=== PATIENT | male | born 1955 | race African-American/Black ===

== ENCOUNTER 2017-04-19 16:56 | Inpatient (IN) | payer MEDICAID ==
[~2017-04-19] VITALS: Ht 170.1 cm; Wt 80.9 kg
--- NOTE | ~2017-04-19 | PR ---
[place], [place] PROGRESS NOTE NAME: ALEM DUNCAN UNIT #: [id number] ROOM: 314 DOCTOR: SUMI CROCKETT BIRTHDATE: [birth year] DOS: 04/23/2017 CHIEF COMPLAINT: "Yeah, I am good." SUMMARY OF THE VISIT: The patient was seen in the dining room where he had just finished his breakfast. Staff reported that he took some of his medications last night, has been doing much better with the Risperdal M-Tab. He has had a decrease in auditory hallucinations. He himself denies any hallucinations. He does continue to have some delusional thoughts, but they are not to the point where they are affecting him or others. He says that he slept well last night. Staff reports the same. MENTAL STATUS EXAMINATION: GENERAL: He is alert, oriented to person, place, not necessarily to time. His short term memory does have some gaps. PLAN: He has been given a loading dose of Invega Sustenna. We will continue to monitor him following that. His Risperdal has been adjusted and he has shown improvement in his behaviors. We will continue to monitor him for any side effects. We will engage him in individual and haile milieu and discharge him to the least restrictive environment when he is psychiatrically stable. Sumi Crockett NP CM:PNTRANS [phone] SUMI CROCKETT 04/23/17 2337 interface
--- NOTE | ~2017-04-19 | PR ---
[place], [place] PROGRESS NOTE NAME: ALEM DUNCAN UNIT #: [id number] ROOM: 314 DOCTOR: JUSTUS MUNIZ MD BIRTHDATE: [birth year] DOS: My in sentence was and the patient will be discharged back to [facility]. Please strike that and have it read and the patient shall be discharged back to [facility]. JUSTUS MUNIZ MD CM:PNTRANS 2 [phone] JUSTUS MUNIZ MD 04/21/17 1959 interface
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
--- NOTE | ~2017-04-19 | PROC NOTE ---
[place], [place] PROCEDURE NOTE NAME: ALEM DUNCAN UNIT #: [id number] ROOM: 314 DOCTOR: YOGI HANDLEY BIRTHDATE: [birth year] DOS: 04/26/2017 MODIFIED BARIUM SWALLOW LOCATION: [address] [place] [address], room 314, bed 2. DOCTOR: Dr. Causey. RADIOLOGIST: Dr. Osei. BACKGROUND INFORMATION: The patient is a 61-year-old male who was seen for modified barium swallow. This test was ordered to rule out aspiration. The patient has been noted to be coughing with p.o. intake. This coughing appears to be inconsistent and worse at times and then at other times. This patient was admitted to the [facility] with increased psychosis and delusions at the snf. The patient has a long history of schizoaffective disorder. Medical history also includes convulsion disorder, diabetes and dysphagia. He currently receives a regular diet and thin liquids. For today's assessment, he was alert and able to follow commands. The patient was cooperative and appeared very subdued at this time. Respiratory status was within normal limits. Oral peripheral examination revealed presence of upper and lower dentures. Strength, speed and range of motion for lingual, labial and buccal skills were within normal limits. Some mildly reduced tone was displayed in facial muscles. METHODS AND MATERIALS USED FOR THE EXAM: The patient was positioned in the lateral plane and the examination was viewed under fluoroscopy. The patient was presented with a variety of consistencies to assess swallowing skills including applesauce mixed with barium presented in half teaspoon amounts. Barium coated cookie presented in bite size pieces and nectar and thin liquid barium taken by cup. Both had neutral position and in chin tuck position. ORAL PHASE: Unremarkable. PHARYNGEAL PHASE: The pharyngeal swallow occurred within a timely manner. During the swallow, laryngeal elevation and epiglottic function were reduced with thick liquids with penetration and aspiration displayed with nectar liquid and penetration during the swallow with honey-thick liquid. One incidence of aspiration was also noted with soft solid consistency due to the mixed consistency of the solid with thin barium. Penetration and aspiration were eliminated with nectar and honey-thick liquids with use of chin tuck maneuver and during the study, a mild amount of pulling was displayed in the vallecula, which cleared with subsequent swallow. ESOPHAGEAL PHASE: This phase of the swallow was not formally assessed during this examination. IMPRESSIONS AND RECOMMENDATIONS: Based upon assessment results, this 61-year-old male presents with a mild to moderate pharyngeal stage dysphagia. He exhibited a mild amount of pooling in the vallecula with solids and liquids, [place], [place] PROCEDURE NOTE NAME: ALEM DUNCAN UNIT #: [id number] ROOM: [facility] DOCTOR: YOGI HANDLEY BIRTHDATE: [birth year] which cleared with subsequent swallow. Penetration and aspiration during the swallow was displayed with nectar and honey-thick liquids due to reduced laryngeal elevation and epiglottic function. This was eliminated with use of a chin tuck maneuver. It is recommended that the patient receive a regular diet with nectar thick liquids. Recommend a chin tuck position with all liquids. Followup therapy is recommended for this patient, focusing on pharyngeal strengthening exercises, education and use of safe swallow strategies and maneuvers to improve safety. Results and recommendations were shared with the patient. He appeared verbalized understanding. Results and recommendations were also shared with his nurse who verbalized understanding. Thank you very much for this referral. Should you have any questions regarding this patient, please contact the speech pathologist at [phone]. YOGI HANDLEY CM:PROCNOTE:PROCEDURE NOTE [id number] YOGI HANDLEY
--- NOTE | ~2017-04-19 | PR ---
[place], [place] PROGRESS NOTE NAME: ALEM DUNCAN UNIT #: [id number] ROOM: 314 DOCTOR: SUMI CROCKETT BIRTHDATE: [birth year] DOS: 04/22/2017 INTERVAL NOTE. CHIEF COMPLAINT: "I'm alright." SUMMARY OF THE VISIT: He was seated at the breakfast table, where he had eaten most of his breakfast already. He is alert. His speech is kind of garbled, but he is able to make himself understood. Does not make eye contact when he is speaking though. He reports that he slept well last night. He did refuse his bedtime meds. He was given a loading dose of Invega Sustenna yesterday and he will get a second loading dose on April 26 of 156 mg. He also is noted to have a moist cough which we will ask the medical people to check out for him. We did discuss the fact that he needs to take his medications and he did agree today that he will take his oral medications, so we will continue to observe him to see if he does that and also to see if he has any issues with the Invega prior to starting any new medications. PLAN: We will monitor him for any reaction to the Invega Sustenna that he received yesterday. Ask the medical to evaluate him for this moist cough that he has. Continue to try to engage him in individual and haile milieu and discharge him to the least restrictive environment when he is psychiatrically stable. Sumi Crockett NP CM:PNTRANS [phone] SUMI CROCKETT 04/22/17 1359 interface
--- NOTE | ~2017-04-19 | PR ---
[place], [place] PROGRESS NOTE NAME: ALEM DUNCAN UNIT #: [id number] ROOM: 314 DOCTOR: JUSTUS MUNIZ MD BIRTHDATE: [birth year] DOS: 04/21/2017 CHIEF COMPLAINT: "Yeah, I think I am ready for breakfast." SUMMARY OF THE VISIT: The patient was interviewed as he sat in the dining area, waiting for breakfast. He was much more conversant and goal directed in his speech today than he was yesterday. Nurses report, however, he continues to episodically refuse medication. He has refused blood work and he has also exhibited some sexually inappropriate behavior. He remains grossly psychotic as well and is often observed talking to unforeseen others. MENTAL STATUS: He is alert and oriented with some time gaps. Mood does seem to be a little bit more stable this morning, but that could be that specific moment. There is still mood lability present and there is a presence of marked paranoia as well as auditory hallucinations. He is more engaging. Short term, intermediate and long-term memory are relatively intact. PLAN: For him to receive Invega Sustenna 234 mg intramuscular earlier today. I will order the secondary loading dose of 156 mg on 04/26/2017. We will continue to attempt to engage him in individual and haile milieu activity with the ultimate plan to return back to [place] when psychiatrically stable. JUSTUS MUNIZ MD CM:PNTRANS 1 41 JUSTUS MUNIZ MD 04/21/171939 interface
--- NOTE | ~2017-04-19 | PR ---
[place], [place] PROGRESS NOTE NAME: ALEM DUNCAN UNIT #: [id number] ROOM: 314 DOCTOR: МАРИЯ TOMPKINS BIRTHDATE: [birth year] DOS: 04/25/2017 SUMMARY OF VISIT: The patient assessed in the dining room where he was waiting for breakfast. He initially did not respond to my questions, not sure somehow if he was being hard of hearing or if he just chose not to, but eventually he engaged in conversation 1 or 2 word answers. Denied anything should be noted. Nursing states that he refused all of his meds last night and still continues to refuse showers. MENTAL STATUS: Alert and oriented to person, place, I do not know about time. Mood: He was still pleasant with me today, answering my questions, but per nursing, he gets to be quite irritable at times and noncompliant obviously with his medications. There are no signs of auditory or visual hallucinations. He denies it when I asked him may be a little underlying paranoia or delusions not really seen right now. PLAN: He is due for his second loading dose of Invega Sustenna tomorrow. I have him on vitamin D. For vitamin D deficiency, he is not taking his Risperdal if we can get the second loading dose of the Invega Sustenna in him and may we can help a little bit with these irritability and behaviors. We will continue to try to redirect and go from there. YSABEL TOMPKINS CNP CM:PNTRANS [id number] МАРИЯ TOMPKINS 04/26/17 0048 interface
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
--- NOTE | ~2017-04-19 | PR ---
[place], [place] PROGRESS NOTE NAME: ALEM DUNCAN UNIT #: [id number] ROOM: 314 DOCTOR: МАРИЯ TOMPKINS BIRTHDATE: [birth year] DOS: 04/24/2017 SUMMARY OF VISIT: The patient was assessed in his room where he engaged in conversation. Nursing notes that he did sleep last night. He did receive his initial loading dose of Invega Sustenna and his next one is due on the . Did state that yesterday, he was refusing some meds when I asked him about this, he said that he only refused once that meaning tired because he was not ready to go to sleep yet. He is also refusing showers. MENTAL STATUS: Alert and oriented to person, I think place, I do not know about time. Mood: He was pleasant with me. Nursing notes that he can be kind of irritable with them, but he engaged in conversation and answered my questions. He was a little bit difficult to understand but took my time asking to repeat, we were able to carry on a fairly superficial conversation. There are no overt signs of auditory or visual hallucinations. I do not know about delusions or paranoia. His rationale as far as why he is refusing his meds made sense, but nurses state that he refused some daytimes meds yesterday, so I am going to keep an eye on him with regard to this. PLAN: Again, his second loading dose is due on Wednesday. He is on vitamin D for vitamin D deficiency and we have him on Risperdal 2 mg t.i.d. We will continue with this medication for now. He should continue to improve, especially after his second loading dose, so he is redirectable. I am going to keep him where he is currently and see how he does over the next 24 hours and how he interacts with me tomorrow and we can go from there. YSABEL TOMPKINS CNP CM:PNTRANS [phone] МАРИЯ TOMPKINS 04/25/17 0121 interface
[2017-04-19 18:24] VITALS: BP 130/78
[2017-04-19] MEDS ORDERED: HALDOL5 MG PO (18:27)
[2017-04-19] MEDS ORDERED: MELATONIN1 M3 PO (18:28)
[2017-04-19] MEDS ORDERED: PROZAC10 MG PO (18:29)
[2017-04-19] MEDS ORDERED: LASIX20 MG PO (18:29)
[2017-04-19] MEDS ORDERED: KEPPRA1000 MG PO (18:30)
[2017-04-19] MEDS ORDERED: RISPERDAL2 M1 PO (18:30)
[2017-04-19 20:20] VITALS: BP 129/85
[2017-04-19 21:44] VITALS: BP 129/85
[2017-04-20 08:18] VITALS: BP 112/78
[2017-04-20 10:23] LABS: BASO % 0.6 % (0.0-1.0); EOS # 0.2 10*3/uL (0.0-0.4); HEMATOCRIT 45.8 % (42.0-52.0); HEMOGLOBIN 15.1 g/dl (14.0-18.0); LYMPH # 2.5 10*3/uL (1.3-4.4); LYMPH % 35.7 % (27.0-41.0); MEAN CELL VOLUME 85.8 fl (80.0-94.0); MEAN CORPUSCULAR HGB 28.3 pg (27.0-31.0); MEAN PLATELET VOLUME 10.5 fl (9.6-12.3); MONO # 0.7 10*3/uL (0.1-1.0); MONO % 9.8 % (3.0-9.0); NEUT # 3.5 10*3/uL (2.3-7.9); NEUT % 50.8 % (47.0-73.0); PLATELET COUNT AUTOMATED 326 10*3/uL (130-400); RED BLOOD COUNT 5.34 10*6/uL (4.50-5.90); RED CELL DISTRI WIDTH 13.3 % (0-14.5)
[2017-04-20 10:36] LABS: ALBUMIN 3.8 gm/dl (3.1-4.5); ALKALINE PHOSPHATASE 65 U/L (45-117); BILIRUBIN, TOTAL 0.9 mg/dl (0.2-1.0); BUN 8 mg/dl (7-24); CARBON DIOXIDE 27 mmol/L (21-32); CHLORIDE 102 mmol/L (98-107); EST GLOM FILT AFRICAN AMERICAN > 60 ml/min; GLUCOSE 103 mg/dL (65-99); POTASSIUM 3.8 mmol/L (3.5-5.1); SGOT/AST 55 IU/L (3-35); SGPT/ALT 77 U/L (12-78); SODIUM 138 mmol/L (136-145); TOTAL PROTEIN 8.8 gm/dL (6.4-8.2)
[2017-04-20 10:44] LABS: THYROID STIM HORMONE (HS) 0.892 uIU/ml (0.358-4.75)
[2017-04-20 10:56] LABS: HEMOGLOBIN A1c 5.6 % (4.8-5.6)
[2017-04-20 11:09] LABS: FOLIC ACID 20.75 ng/mL (>5.38); VITAMIN D, 25-HYDROXY 11.2 ng/mL (30-100)
[2017-04-20 20:15] VITALS: BP 106/75
[2017-04-21 09:31] VITALS: BP 114/79
[2017-04-22 07:45] VITALS: BP 101/69
[2017-04-22 20:06] VITALS: BP 120/77
[2017-04-23 06:59] VITALS: BP 99/69
[2017-04-23 08:30] VITALS: BP 106/82
[2017-04-23 09:30] VITALS: BP 112/74
[2017-04-23 20:37] VITALS: BP 119/76; BP 120/77
[2017-04-24 07:35] VITALS: BP 130/80
[2017-04-25 08:11] VITALS: BP 103/76
[2017-04-25 20:34] VITALS: BP 107/71
[2017-04-25 20:37] VITALS: BP 107/71
[2017-04-26 08:05] VITALS: BP 122/83
[2017-04-27 08:00] VITALS: BP 111/64; BP 80/50
[2017-04-27] MEDS ORDERED: VITAMIN D50000 I3 PO (08:31)
[2017-04-27] MEDS ORDERED: INVEGA SUSTENN156 MG IM (08:31)
== END 2017-04-27 17:32 | disposition other institution (70) | DRG 885 ==
LOC: 3N 16:56
PROVIDERS: Psychiatry & Neurology Psychiatry
PROC: BD11YZZ Fluoroscopy of Esophagus using Other Contrast (ICD-10-PCS; principal; 2017-04-26)
DX: F25.9 Schizoaffective disorder, unspecified (principal); R13.10 Dysphagia, unspecified; E11.9 Type 2 diabetes mellitus without complications; G40.909 Epilepsy, unspecified, not intractable, without status epilepticus; K21.9 Gastro-esophageal reflux disease without esophagitis; F17.210 Nicotine dependence, cigarettes, uncomplicated; Z79.899 Other long term (current) drug therapy

== ENCOUNTER 2017-07-25 15:22 | Inpatient (IN) | payer MEDICAID ==
[~2017-07-25] VITALS: Ht 172.7 cm; Wt 81.6 kg
--- NOTE | ~2017-07-25 | PR ---
[place], [place] PROGRESS NOTE NAME: ALEM DUNCAN UNIT #: [id number] ROOM: 312 DOCTOR: МАРИЯ TOMPKINS BIRTHDATE: [birth year] DOS: 08/01/2017 CHIEF COMPLAINT: "Good morning." SUMMARY OF VISIT: The patient was assessed in the dining room where he was sitting in a recliner against the back wall. He engaged in minimal conversation, one word answers, "I'm okay." No issues per nursing. MENTAL STATUS: He is alert and oriented to person, place, I do not know about time. Mood euthymic. Affect appropriate. Again, his answers to my questions are pretty much okay. I asked "how is the sleep? Okay. How is your appetite? Okay." No overt signs of auditory or visual hallucinations. No delusions, paranoia, shelbie or hypomania. PLAN: The patient seems to be doing okay on his current psychotropic regimen. We will continue to try to engage him in individual and haile milieu therapy and the plan is to eventually getting back to [facility] once stable. YSABEL TOMPKINS CNP CM:JAVIER 0 МАРИЯ TOMPKINS 08/03/17799 interface
--- NOTE | ~2017-07-25 | PR ---
[place], [place] PROGRESS NOTE NAME: ALEM DUNCAN UNIT #: [id number] ROOM: 312 DOCTOR: JUSTUS MUNIZ MD BIRTHDATE: [birth year] DOS: 07/30/2017 CHIEF COMPLAINT: "I am okay, I just want my breakfast now." SUMMARY OF THE VISIT: The patient was interviewed as he sat eating his breakfast in the dining area. He engaged readily in superficial conversation. He voiced no complaints. He reports that he is sleeping well, eating well. He denies side effects from the medications themselves and he is anxious to return back to [facility]. MENTAL STATUS: He is alert and oriented with mild time gaps. Mood does seem to be trending towards euthymia. Affect is more appropriate. There are no symptoms of hypomania or shelbie. He denies auditory or visual hallucinations. Speech rate and pattern seems to be very slow and deliberate and at times he speaks very mumbled and is hard to understand. Memory for the most part is intact. PLAN: Given the benefit of the current psychotropic regimen, I will continue the medication regimen as is. We will continue to engage him in individual and haile milieu activity with the ultimate plan to return to [facility] when psychiatrically stable. JUSTUS MUNIZ MD CM:PNTRANS 0813 [id number] JUSTUS MUNIZ MD 07/31/17 0000 interface
--- NOTE | ~2017-07-25 | PR ---
[place], [place] PROGRESS NOTE NAME: ALEM DUNCAN UNIT #: [id number] ROOM: 312 DOCTOR: JUSTUS MUNIZ MD BIRTHDATE: [birth year] DOS: 07/31/2017 CHIEF COMPLAINT: "Morning, I am ready for breakfast." SUMMARY OF THE VISIT: The patient was interviewed as he sat in the dining area watching television. He stopped and engaged in conversation with me, reporting that he is feeling better, he is sleeping better, eating better, although then he retracted the sleeping better part and states that at times he has trouble. There is no agitation or aggression. There is no noted EPS, tardive dyskinesia or other side effects. MENTAL STATUS: He is alert and oriented to person, place and time. Mood does seem to be trending towards euthymia. Affect is more appropriate. There are no symptoms of shelbie or hypomania. There are no overt auditory or visual hallucinations. No delusions, no paranoia. PLAN: I will renew his Ativan in case he requires intervention. We will also order trazodone p.r.n. in case he really does have a sleep issue, return to the least restrictive environment when stable. JUSTUS MUNIZ MD CM:PNTRANS [phone] JUSTUS MUNIZ MD 08/02/1759 interface
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
--- NOTE | ~2017-07-25 | PR ---
[place], [place] PROGRESS NOTE NAME: ALEM DUNCAN UNIT #: [id number] ROOM: 312 DOCTOR: JUSTUS MUNIZ MD BIRTHDATE: [birth year] DOS: 07/27/2017 CHIEF COMPLAINT: "Yeah, I want to be able to go back home soon." SUMMARY OF THE VISIT: The patient was interviewed as he was in the dining room, breakfast. He engaged readily in conversation. Continues to give very short simple responses in a very mumbled voice. He did receive a secondary loading dose of the Invega without incident. He seems fairly pleasant and cooperative and does not seem to be easily agitated or aggressive. I see no tardive dyskinesia, extrapyramidal symptoms or other side effects at this point. MENTAL STATUS: He is alert and oriented with time gaps. Mood does seem somewhat flat and blunted with a constricted range and affect. He is not spontaneously and is not forthcoming with symptoms. Memory shows gaps. PLAN: I will go ahead and increase his Exelon patch from 4.6 to 9.5 mg a day in an effort to improve cognitive factors, engage in individual and haile milieu activity with the plan to return back to when stable. JUSTUS MUNIZ MD CM:PNTRANS [id number] JUSTUS MUNIZ MD 07/27/17 2335 interface
--- NOTE | ~2017-07-25 | PR ---
[place], [place] PROGRESS NOTE NAME: ALEM DUNCAN UNIT #: [id number] ROOM: 312 DOCTOR: JUSTUS MUNIZ MD BIRTHDATE: [birth year] DOS: 07/29/2017 CHIEF COMPLAINT: "I'm good, it's all good." SUMMARY OF THE VISIT: The patient was interviewed as he sat in the dining area completing his breakfast. He engaged readily in conversation. He continues to be relatively pleasant and bright. He does report that he is ready to go back to [facility]. He has been compliant here and there has been no evidence of any agitation or aggression. He has tolerated his current medication regimen well and I see no tardive dyskinesia or extrapyramidal symptoms. His only persistent complaint is right shoulder pain and he does attempt to move his shoulder and states that he cannot lift his arm above his head. At this point, I will mention this to [facility] to proceed with an MRI of his shoulder if one has not been completed. MENTAL STATUS: He is alert and oriented. Mood does seem to be strongly trending towards euthymia. Affect is much more appropriate. There are no symptoms of hypomania or shelbie. There are no overt auditory or visual hallucinations. No delusions or paranoia noted. Memory for the most part is intact. PLAN: I will go ahead and maximize out the Exelon patch at 13.3 mg a day. There still is significant cognitive loss and this should improve his overall cognition as well as impacting positively on ADL maintenance and behavior. Maintain his current psychotropic regimen. I will order him Zostrix high potency cream t.i.d. for his shoulder. We will explore what workup if any has been done on the shoulder and plan to schedule this as an outpatient post discharge. We will continue to engage in individual and haile milieu activity with the plan to return to [facility] when psychiatrically stable. JUSTUS MUNIZ MD CM:PNTRANS [phone] JUSTUS MUNIZ MD 07/30/17 0257 interface
--- NOTE | ~2017-07-25 | PR ---
[place], [place] PROGRESS NOTE NAME: ALEM DUNCAN UNIT #: [id number] ROOM: 312 DOCTOR: JUSTUS MUNIZ MD BIRTHDATE: [birth year] DOS: 07/28/2017 CHIEF COMPLAINT: "My shoulder still hurts." SUMMARY OF THE VISIT: The patient was interviewed as he sat eating his breakfast. He engaged readily in conversation. He was fairly pleasant and bright. His speech still remains rather garbled and at times hard to understand. He denied any problems and has been fairly compliant here. He still does not take his oral meds consistently, but he did take the injection well. He is not exhibiting any extrapyramidal symptoms, tardive dyskinesia or any other side effects. MENTAL STATUS: He is alert and oriented with some time gaps. Mood does seem to be more euthymic. Affect is more appropriate. There are no symptoms of hypomania or shelbie. There are no auditory or visual hallucinations. Short term memory is exceedingly poor. PLAN: I will maintain his current psychotropic regimen. I will plan to increase his Exelon to its maximum dose tomorrow, may need to augment this with Namenda. We will look to eventually discharge back to [facility] when stable. JUSTUS MUNIZ MD CM:PNTRANS [id number] JUSTUS MUNIZ MD 07/28/17 1108 interface
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
[~2017-07-25 15:22] MED LIST: HALDOL5 MG PO; INVEGA SUSTENN156 MG IM; KEPPRA1000 MG PO; LASIX20 MG PO; MELATONIN1 M3 PO; PROZAC10 MG PO; RISPERDAL2 M1 PO; VITAMIN D50000 I3 PO
[2017-07-25] MEDS ORDERED: DULCOLAX10 M1 R (17:56)
[2017-07-25] MEDS ORDERED: MOM30 M1 PO (17:56)
[2017-07-25] MEDS ORDERED: TYLENOL325 M1 PO (17:57)
[2017-07-25] MEDS ORDERED: INVEGA SUSTENN156 MG IM (17:58)
--- NOTE | 2017-07-25 18:58 | NUR ---
ADMISSION ORDERS RECEIVED FROM JARED SCHAFER. VERBAL CONSENTS GIVEN VIA TELEPHONE FROM GUARDIAN, KRYSTLE MCGRATH FOR ADMISSION/TX/MEDICATIONS.
[2017-07-25 21:00] VITALS: BP 123/78
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
[2017-07-25] MEDS ORDERED: HALDOL5 MG PO (21:45)
[2017-07-25] MEDS ORDERED: HALDOL5 MG/1 ML IJ (21:46)
[2017-07-25] MEDS ORDERED: HALDOL0.5 MG PO (21:50)
[2017-07-25] MEDS ORDERED: FLEET ENEMA EX230 M1 R (21:59)
--- NOTE | 2017-07-25 22:54 | NUR ---
CALLED HOSPITALIST NUMBER [phone], SPOKE WITH , UPDATED HIM ON NEW ADMISSION AND THAT MED REC IS COMPLETED. DR. COSTELLO STATED TO PLACE CONSULT UNDER . NO OTHER ORDERS RECIEVED.
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
--- NOTE | 2017-07-26 05:45 | NUR ---
PATIENT OBSERVED ON Q 15 MIN CHECKS TO HAVE SLEPT THROUGHOUT THE NIGHT WITH ONE BRIEF AWAKENING TO USE THE RESTROOM WITH ASSISTANCE OF STAFF. NO SIGNS OR SYMPTOMS OF DISTRESS NOTED.
--- NOTE | 2017-07-26 06:22 | NUR ---
PATIENT REFUSED AM LABS, ATTEMPTED TO EDCUATE PATIENT ON IMPORTANCE OF RECIEVING LABS, PATIENT NOT RECEPTIVE TO EDUCATION AT THIS TIME STATING "ABSOLUTELY NOT". NO SIGNS OR SYMPTOMS OF DISTRESS NOTED.
--- NOTE | 2017-07-26 06:35 | NUR ---
24 HOUR CHART CHECK COMPLETED.
[2017-07-26 08:04] VITALS: BP 111/79
--- NOTE | 2017-07-26 08:16 | NUR ---
TREATEMENT TEAM WAS HELD WITHT HE FOLLOWING: DR. MUNIZ, TROUBLE LOCATOR TEST DESK, SWs, RNs, AT, AND DIRECTOR. PT IS FROM [facility]. dR. MUNIZ LOOKING FOR DISCHARGE AT END OF WEEK OR BEGINNING OF NEXT WEEK.
--- NOTE | 2017-07-26 10:54 | NUR ---
JENNY ALVAREZ CNP OF HOSPITALIST GROUP ON UNIT TO SEE PT AT THIS TIME, MEDICAL HISTORY REVIEWED WITH SPORTS INTERN, MADE AWARE OF PT'S DOCUMENTED NONCOMPLIANCE WITH MEDICATIONS AT LONG-TERM AND THAT PT IS TO BE TAKING KEPPRA BUT PER LONG-TERM HE HAS NOT HAD A SEIZURE FOR A LONG TIME. ALSO MADE AWARE OF PT'S MOIST PRODUCTIVE COUGH. JENNY STATES SHE WILL REVIEW PTS RECORDS AND MEDICATIONS AND ENTER NEW ORDERS APPROPRIATE.
--- NOTE | 2017-07-26 11:08 | NUR ---
Exercise/Trivia Excerise helps with mobility,circulation and staying active,trivia helps with memory,thinking and concentration. Patient did attend group this morning as well as participated. Patient followed direction and stayed on task very well during exercise. During trivia patient patiticpated but often was confused when answering a question, patient was very friendly to other patients and staff,never inappropriate
--- NOTE | 2017-07-26 12:34 | NUR ---
SWS faxed updated information to [facility] so that SW can update the chnage of condition" form for the [facility].
--- NOTE | 2017-07-26 13:54 | NUR ---
Rec'd pc from Evon from [facility], Miguel may return, bed being held and no pre-cert.
--- NOTE | 2017-07-26 14:28 | NUR ---
Patient not available for Occupational Therapy evaluation as he was in group therapy session. OTR will attempt at a later date. Thank you for this referral. Linda Garcia OTR/keyona
--- NOTE | 2017-07-26 14:31 | NUR ---
PHYSICAL THERAPY PAtient at group at this time. Thak you for this referral. Rossy Cash,PT
--- NOTE | 2017-07-26 18:38 | NUR ---
SHIFT CHART CHECK COMPLETED.
--- NOTE | 2017-07-26 18:55 | NUR ---
PT REFUSED TO PROVIDE URINE SAMPLE THROUGHOUT THIS SHIFT. WILL PASS ALONG TO NEXT SHIFT TO ATTEMPT UA COLLECTION.
--- NOTE | 2017-07-26 20:39 | NUR ---
UP TO BATHROOM TO VOID AND SMALL BM. CONTINUES TO REFUSE TO PROVIDE URINALYSIS. UNIT CALLED FOR ROUTINE XRAY. CLIENT REFUSES TO GO
--- NOTE | 2017-07-26 23:56 | NUR ---
CALLED TO CLIENTS ROOM FOR EMESIS. CLIENT HAS SPUTUM ON TISSUE..WENT TO GET SOMETHING FOR STOMACH AND HE THEN CALLED OUT SAYING HE WAS FINE AND DIDN'T NEED ANYTHING
--- NOTE | 2017-07-27 03:39 | NUR ---
NO NEW EMESIS INCIDENTS SINCE EARLIER. HAS BEEN SLEEPING 24 HR chart check completed.
--- NOTE | 2017-07-27 06:25 | NUR ---
SLEPT WELL. REFUSED MORNING LABS
[2017-07-27 08:00] VITALS: BP 128/82
--- NOTE | 2017-07-27 08:01 | NUR ---
Fall Craft This helps with self esteem, concentration, socializing, thinking and mobility. Patient did attend group as well as participated. Patient did need some 1:1 but mainly accomplished most of craft on his own. part nilda through patient stated he did not want to do this anymore and wanted a cigarette instead. Patient told that was not possible at this time but patient still refused to finish project and just sat while others finished
--- NOTE | 2017-07-27 11:13 | NUR ---
PHYSICAL THERAPY Pnt in group therapy and unable to participate in PT evaluation at this time. Will attempt again at a later date. Kristine Srivastava, PT
--- NOTE | 2017-07-27 11:25 | NUR ---
JENNY ALVAREZ CAPACITOR REPAIRER ON UNIT TO SEE PT AT THIS TIME, STATES PT HAS AGREED TO ALLOW LABS TO BE DRAWN, JENNY REQUESTS THIS NURSE RESCHEDULE LABS FOR NOW.
[2017-07-27 11:56] LABS: BASO % 0.6 % (0.0-1.0); EOS # 0.2 10*3/uL (0.0-0.4); EOS % 4.5 % (1.0-4.0); HEMATOCRIT 44.4 % (42.0-52.0); HEMOGLOBIN 14.5 g/dl (14.0-18.0); LYMPH % 36.3 % (27.0-41.0); MEAN CELL VOLUME 85.9 fl (80.0-94.0); MEAN CORPUSCULAR HGB CONC 32.7 g/dl (33.0-37.0); MEAN PLATELET VOLUME 10.5 fl (9.6-12.3); MONO # 0.6 10*3/uL (0.1-1.0); MONO % 11.2 % (3.0-9.0); NEUT # 2.5 10*3/uL (2.3-7.9); NEUT % 47.2 % (47.0-73.0); PLATELET COUNT AUTOMATED 266 10*3/uL (130-400); RED BLOOD COUNT 5.17 10*6/uL (4.50-5.90); RED CELL DISTRI WIDTH 13.4 % (0-14.5); WHITE BLOOD COUNT 5.4 10*3/uL (4.8-10.8)
--- NOTE | 2017-07-27 12:08 | NUR ---
PHYSICAL THERAPY Physical Therapy Evaluation completed this date. See eval document for complete details. Will begin PT intervention to address impairments of muscle weakness, decreased transfer safety, and difficulty ambulating. Recommend d/c back to [facility] as able. [place] [id number] based on chart review and PT eval. Kristine Srivastava, PT
[2017-07-27 12:14] LABS: ALBUMIN 3.7 gm/dl (3.1-4.5); ALKALINE PHOSPHATASE 61 U/L (45-117); BUN 10 mg/dl (7-24); CHLORIDE 104 mmol/L (98-107); CHOLESTEROL 206 mg/dL (<200); CREATININE 0.71 mg/dL (0.70-1.30); HDL CHOLESTEROL 28 mg/dl (40-60); LDL CHOLESTEROL 135 mg/dL (9-159); POTASSIUM 4.3 mmol/L (3.5-5.1); SGOT/AST 55 IU/L (3-35); SGPT/ALT 77 U/L (12-78); SODIUM 137 mmol/L (136-145); TRIGLYCERIDES 216 mg/dl (<150); VLDL CHOLESTEROL 43 mg/dL (6-40)
[2017-07-27 12:22] LABS: THYROID STIM HORMONE (HS) 0.647 uIU/ml (0.358-4.75)
[2017-07-27 12:57] LABS: VITAMIN D, 25-HYDROXY 17.7 ng/mL (30-100)
--- NOTE | 2017-07-27 13:29 | NUR ---
PT IS ALERT AND ORIENTED TO SELF ONLY, CONFUSED IN OTHER ASPECTS. ST/LT MEMORY DEFICITS NOTED RESPIRATIONS EASY ON ROOM AIR. MOOD IS STABLE, AFFECT IS FLAT. SPEECH IS SOFT, GARBLED AT TIMES, ABLE TO MAKE NEEDS KNOWN TO STAFF WITHOUT DIFFICULTY. PT DENIES HALLUCINATIONS, NO RESPONSE TO INTERNAL STIMULI NOTED. PT DENIES SI/HI. NO PARANOIA/DELUSIONS NOTED. PT IS CALM AND COOPERATIVE, INTERACTIVE WITH STAFF AND PEERS, PARTICIPATES IN GROUPS AND ACTIVITIES. SELF PROPELS W/C ON UNIT WITHOUT DIFFICULTY, HIGH FALL RISK PRECAUTIONS MAINTAINED, PT REMINDED TO ASK FOR ASSISTANCE WITH TRANSFERS/TOLIETING. NO AGGRESSIVE/COMBATIVE BEHAVIOR THIS SHIFT. RELIANT ON STAFF FOR ASSISTANCE WITH ADLS, CONTINENT OF BOWEL AND BLADDER, DISPLAYS GOOD APPETITE WITH ADEQUATE FLUID INTAKE, TOLERATING CURRENT DIET, MECH SOFT/THIN LIQUIDS WITHOUT DIFFICULTY. NO DISTRESS NOTED. Q15 MIN SAFETY CHECKS MAINTAINED, REFER TO [facility] FLOWSHEET FOR SPECIFIC MONITORING.
--- NOTE | 2017-07-27 13:37 | NUR ---
Reading/Reminiscing This will help patient with memory,concentration,thinking and socialization Patient did attend group but did not participate. Patient would speak when spoken to but answered no to every question asked to him. Patient also nodded off x3 and was woken up
--- NOTE | 2017-07-27 18:59 | NUR ---
SHIFT CHART CHECK COMPLETED.
[2017-07-27 20:10] VITALS: BP 116/67
--- NOTE | 2017-07-27 20:56 | NUR ---
REFUSED PM MEDICATION\. STATES I'M NOT SICK. UNABLE TO REDIRECT.
--- NOTE | 2017-07-27 21:17 | NUR ---
ISOLATIVE EXCEPT FOR MEALS [facility] P#1 PSYCHOSIS I--EDUCATE ON ALL MEDICATIONS, TEACH REALITY BASED COPING SKILLS, TEACH IMPORTANCE OF INTERACTIONS WITH OTHERS P- NO FALLS, MEDICATION COMPLIANCE, INCREASE SOCIALIZATION SKILLS
--- NOTE | 2017-07-28 02:39 | NUR ---
24 HR chart check completed.
--- NOTE | 2017-07-28 03:21 | NUR ---
UP IN WHEELCHAIR IN QUIET ROOM. SPEECH THICK BUT UNDERSTANDABLE. STATES CAN'T SLEEP. REQUESTING COFFEE. INFORMED THAT COFFEE WILL BE ON BREAKFAST TRAY. WATER REFUSED. OFFERED TO CLEAN DENTURES AGAIN AND AGAIN HE REFUSED. DENIES ANY PAIN AT THIS TIME. KEEPING EYES CLOSED DURING CONVERSATION.
--- NOTE | 2017-07-28 06:23 | NUR ---
SLEPT MOST SHIFT. SINGING QUIETY IN HALLWAY HE WENT BACK TO ROOM EARLIER
--- NOTE | 2017-07-28 08:07 | NUR ---
Who Am I?/Positive traits Patient refused to attend group. Patietn was asleep and was encouraged to join group continued to decline. Patient stated he was tired
[2017-07-28 08:23] VITALS: BP 110/65
--- NOTE | 2017-07-28 08:32 | NUR ---
Treatment Team meeting was held with the following present: Dr. Israel, INTER FOLD ROLL CUTTER. Medical Stufent RN. AT. and SW. SW informed Dr Israel that CO needs statement that Pt is stable and ok to go back to facility. Dr. Israel will out it in his notes.
--- NOTE | 2017-07-28 10:33 | NUR ---
PHYSICAL THERAPY Miguel was seen this AM 1:1 for his therapu treatment. Pt was up in the day room this visit. Pt dementia and giving verbal cues for everything. Transfer sit/stand, standing balance MOD ASH HANDLER X 1, with cueing just to stand. Followed by gait 140' X 2, with one sitting rest. Pt needing verbal cues to slow his gait down for safety, stop/start gait with cues not to lean forward so far for gait balance safety. Pt back up in the day room sitting rest, followed by act Ex to bilateral LE of marching, LAQ's, and ankle pumps with verbal cueing for each Ex working in 25 reps each. Pt in his wheelchair body alarm on, treatment time 25 min. YANELIS SINGH CUTTING TOOL SHARPENER.
--- NOTE | 2017-07-28 10:42 | NUR ---
AISHWARYA ALVAREZ UP TO SEE THE PATIENT
--- NOTE | 2017-07-28 10:59 | NUR ---
24 HR chart check completed.
--- NOTE | 2017-07-28 13:16 | NUR ---
Exercise/Games Exercise will help with circulation, mobility staying active, Our game was "Choices" which got the patient thinking concentrating and socializing Patient did attend group as well as participate. During exercise he even exercised his sore shoulder. during games patient would participate if you directed the question right at him. Occasionally he would seem confused and answer with a complete random answer
--- NOTE | 2017-07-28 17:24 | NUR ---
ALERT TO SELF, UNDERLYING IRRITABILITY, NO OUTBURST, UP IN A WHEELCHAIR, REFUSING ADL'S, REFUSING MEDICAITONS, REUFSING TO BRUSH HIS DENTURES. JOKEING AROUD, DENIES SI/HI, ALL PSYCHOSIS,
[2017-07-28 20:00] VITALS: BP 122/72
--- NOTE | 2017-07-28 21:11 | NUR ---
REFUSED HS MEDICATION.
--- NOTE | 2017-07-28 22:24 | NUR ---
ISOLATIVE TO ROOM EXCEPT TO EAT SNACK. REFUSED PM MEDICATIONS CONTINUES TO REFUSE ANY HYGIENE CARE INCLUDING CLEANING DENTURES. USES THE WHEELCHAIR TO MOVE AROUND UNIT, SOMETIMES SITTING IN IT SOMETIMES PUSHING IT. OFFERED HIM A WALKER AND HE REFUSED.
--- NOTE | 2017-07-29 03:29 | NUR ---
24 HR chart check completed.
--- NOTE | 2017-07-29 05:43 | NUR ---
AMBULATED DOWN [place] WITH WHEELCHAIR THEN TURNED AROUND AND WENT BACK TO ROOM. DIDN'T SPEAK TO STAFF
[2017-07-29 08:17] VITALS: BP 135/81
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
--- NOTE | 2017-07-29 11:11 | NUR ---
[facility] FAXED INFO STATING THAT PT HAS NOT HAD AN XRAY OF THE RIGHT SHOULDER COMPLETED. WILL NOTIFY OF FINDINGS. ROM WNL. NO C/O PAIN AT THIS TIME.
--- NOTE | 2017-07-29 11:16 | NUR ---
Craft/Being afriad 07/28/2017 Afternoon This craft included a saying about being afraid. This helps patient to express his fears and other feelings and discuss them. Patient did attend group as well as participated. Patient needed very little 1:1. Patient was asked if he had any fears,Patient stated "I ain't got none. I'm happy" and laughed. Patient was cheerful throughout group not joining in on any confersations,unless it had to do with his craft
--- NOTE | 2017-07-29 11:35 | NUR ---
ON UNIT TO ASSESS PT.
--- NOTE | 2017-07-29 13:00 | NUR ---
MITCH SPOKE WITH MINA MERRILL SM[place]. [place] MADE A REFERRAL TO [facility].
[2017-07-29 13:05] LABS: LEVETIRACETAM (KEPPRA) 716936 22.6 ug/mL (10.0-40.0)
--- NOTE | 2017-07-29 13:57 | NUR ---
PT REFUSED All HYGIENE CARE INCLUDING CLEANING DENTURES, MULTIPLE ATTEMPTS MADE BY MULTIPLE STAFF MEMBERS.
--- NOTE | 2017-07-29 14:18 | NUR ---
PHYSICAL THERAPY Patient presented to therapy with report of feeling pretty good and no other complaints. Patient performed sit to stand transfer with CGA X 1. Patient performed gait with W/W for 200' x 1 with CGA X 1 to Min. A X 1 with verbal and manual cues for proper gait sequence, staying close to walker, and safety. Patient then performed ther ex for strengthening the dylon. LEs and hips x 12 minutes in seated position. Patient performed gait and ther ex 1:1 with this SHIPPING ORDER CLERK for 10 minutes of gait and 12 minutes of ther ex. Julius Rodriguez PTA
--- NOTE | 2017-07-29 15:26 | NUR ---
PT ALERT TO PERSON ONLY. PT REFUSED KEPPRA THIS AM, TOOK ALL OTHERS MEDS. PT CALM, IRRITABLE AT TIMES. NO HALLUCINATIONS OR DELUSIONS NOTED.PT DENIES ANY HOMICIDAL/SUICIDAL THOUGHTS. PT REFUSED ALL HYGIENE CARE INCLUDING CLEANING HIS DENTURES. PT CONTINENT OF BOWEL AND BLADDER. PT PROPELS SELF THRU HALLS IN WHEELCHAIR. PLAN IS TO PROVIDE MED EDUCAIOTN AND ENCOURAGE PT TO TAKE MEDS, ENCOURGAE PT TO PARTICIAPTE IN GROUPS/ACTIVITIES, MONITOR BEHAVIORS ON Q15 MIN SAFTEY CHECKS.
[2017-07-29 20:17] VITALS: BP 134/76
--- NOTE | 2017-07-30 00:27 | NUR ---
PT PRESENTED WITH A GUARDED AFFECT. PT REFUSED ALL "CAPSULES" AND WOULD ONLY ALLOW FOR THE ADMINISTRATION OF PAIN RELIEVING CREAM TO HIS RIGHT SHOULDER. PT REFUSED TO EXPAND UPON WHY HE IS CURRENLY REFUSING HIS KEPPRA. EDUCATION REGARDING MEDICATION COMPLIANCE WAS UNSUCCESSFUL. NURSE ATTEMPTED TO ENCOURAGE THE VOICING OF EMOTIONS AND CONCERNS IN HOPES TO DECREASE PARANOIA AND INCREASE THERAPEUTIC RAPPORT. PT ISOLATED TO ROOM FOR THE MAJORITY OF SHIFT. CONTINUE TO MONITOR FOR CHANGES IN BEHAVIOR. REFER TO FLOWSHEET FOR ADDTITIONAL INFO.
--- NOTE | 2017-07-30 03:29 | NUR ---
24HR CHART CHECK COMPLETE
--- NOTE | 2017-07-30 06:03 | NUR ---
PT SLEPT >8HRS WITH NO INTERRUPTIONS.
--- NOTE | 2017-07-30 07:54 | NUR ---
07/29/2017 Morning: Trivia This helps the patient with self esteem, thinking, concentration,socializing and lifting their spirits. Patient did attend group and did participate. Patient was appropriate during group. Patient answered questions to the trivia sometimes on his own and at times when prompted. Patient was laughing at times but did not interact with others
[2017-07-30 08:02] VITALS: BP 126/78
--- NOTE | 2017-07-30 11:51 | NUR ---
Exercise/Odd Hole Both activities help with movement, circulation, self esteem, concentration, thinking, and socialization Patient did attend group as well as participated. Patient at first refused group stating "I'm sick. They made me get back in the bunk because of my shoulder." I asked who "They" were and he stated "the Nurses." I notified his nurse about his statement. Patient showed up to group a short time later and participated but was withdrawn and only spoke when i spoke to him. Although patient was appropriate throughout group he did not interact with other patients
--- NOTE | 2017-07-30 14:46 | NUR ---
PHYSICAL THERAPY Patient presented to therapy with report of feeling much better today and no complaints. Patient performed sit to stand transfer with Supervision. Patient performed gait with W/W for 220' x 1 with Supervision and Verbal cues for slowing down and staying close to walker. Patient then performed ther ex in seated position in all planes of movement x 20 reps each. Patient was 1:1 with this CELL CHANGER FOR 25 MINUTES total. Julius Rodriguez PTA
--- NOTE | 2017-07-30 15:18 | NUR ---
Reminiscing This helps with memory, concintration, self esteem and socializing Patient was in attendence for group but did not participate. I asked patient a question about what he did growing up during this part of the year. Patient had his head down on the table,lifted it and stated "I dont want to talk" and laid his head back down.
--- NOTE | 2017-07-30 17:45 | NUR ---
PT ALERT TO PERSON, SOMEWHAT PLACE, KNOWING HE IS IN THE HOSPITAL BUT UNSURE OF WHERE. PT MED COMPLIANT WITH MINIMAL DIFFICULTY. PT TOOK ALL AM PO MEDS, PT TOOK 1/2 THE ORDERED DOSE OF THE KEPPRA STATING "I'LL TAKE ONE OF THE SEIZURE PILLS BUT NOT TWO." PT ISOLATIVE AND WITHDRAWN, SPEAKING WHEN SPOKEN TO BUT NOT INTERACTING OR CONVERSING WITH PEERS. NO HALLUCINATIONS OR DELUSIONS NOTED. PT DENIES ANY HOMICIDAL/SUICIDAL THOUGHTS. NO COMBATIVE BEHAVIOR NOTED. PT UP TO WHEELCHAIR, PROPELS SELF IN THE HALLS AT TIMES, OTHER TIMES PT REFUSING TO SIT IN WHEELCHAIR, CHOOSING TO PUSH CHAIR IN FRONT OF HIM, ATTEMPTED TO EDUCATE PT ON THE DANGERS, EDUCATION INEFFECTIVE. PT CONTINENT OF BOWEL AND BLADDER. PT REFUSED ALL HYGIENE CARE, INCLUDING REFUSING TO CLEAN DENTURES. PLAN IS TO ENCOURAGE PT TO PARTICIPATE IN GROUPS/ACTIVITIES, MONITOR PT BEHAVIORS ON Q15 MIN SAFTEY CHECKS, ENCOURAGE PT TO PERFORM HYGIENE CARE.
--- NOTE | 2017-07-30 19:28 | NUR ---
PT CURRENTLY REFUSING TO GIVE URINE SAMPLE. EDUCATED THE PURPOSE OF THE TEST. PT STILL REFUSING. CONTINUE TO SUPPORT AND EDUCATE.
[2017-07-30 20:10] VITALS: BP 116/75
--- NOTE | 2017-07-30 22:14 | NUR ---
PT REFUSED TO SPEAK WITH NURSE REGARDING THE IMPORTANCE OF MEDICATION REGIMENT ADHERENCE. WISHED TO GO TO SLEEP EARLY. REFUSED KEPPRA STATING " I DON'T HAVE NO SEIZURES." WHEN EDUCATED REGARDING THE FACT THAT MEANS THE KEPPRA HAS BEEN EFFECTIVE THUS FAR, PT CONTINUED TO REPEAT THAT HE DOES NOT HAVE A SEIZURE DISORDER. ENCOURAGED VERBALIZATION OF FEELINGS AND PROVIDED MEDICATION EDUCATION. CONTINUE TO MONITOR FOR CHANGES IN BEVHAVIOR AND FOSTER THERAPEUTIC RAPPORT. REFER TO [facility]ARED FOR ADDITIONAL DOCUMENTATION.
--- NOTE | 2017-07-31 05:45 | NUR ---
24HR CHART CHECKS COMPLETE
--- NOTE | 2017-07-31 06:41 | NUR ---
PT SLEPT >10HRS WITH NO INTERRUPTIONS
[2017-07-31 08:57] VITALS: BP 116/81
--- NOTE | 2017-07-31 11:30 | NUR ---
ON UNIT TO ASSESS PT.
--- NOTE | 2017-07-31 14:24 | NUR ---
PT ALERT TO PERSON. PT SPIT OUT LASIX THIS AM, AND REFUSED KEPPRA. PT COMPLIANT WITH EXELON PATCH, NICOTENE PATCH AND CAPSICIAN CREAM TO SHOULDER. PT MOOD IS STABLE. NO DELUSIONS NOTED. PT OBSERVED TO BE TALKING TO UNFORSEEN OTHERS AT TIMES. PT OBSERVED TO BE SITTING IN THE HALLS SINGING AT TIMES. PT UP TO WHEELCHAIR. PT CONTINENT OF BOWEL AND BLADDER. PT SHOWERED THIS SHIFT AND DENTURE CARE PROVIDED. PT CONSUMED 100% OF BREAKFAST AND LUNCH. PLAN IS TO ENCOURAGE PT TO PARTICIPATE IN GROUPS/ACTIVITIES, MONITOR PT BAHAVIORS ON Q15 MIN SAFETY CHECKS.
--- NOTE | 2017-07-31 14:39 | NUR ---
PT REFUSING TO GIVE URINE SAMPLE AT THIS TIME. PT EDUCATION PROVIDED, EDUCATION INEFFECTIVE.
[2017-07-31 20:00] VITALS: BP 112/78
--- NOTE | 2017-08-01 04:14 | NUR ---
24 HR chart check completed.
--- NOTE | 2017-08-01 07:18 | NUR ---
PT PLESANT AND COOPERATIVE WITH ALL ASPECTS OF CARE, MEDICATION COMPLIANT WIT OUT DIFFICULTY. REQUESTING "SLEEP MEDICATION". PRN HS TRAZODONE GIVEN. PT SLEPT THROUGHOUT THE NIGHT WITH OUT INTURRUPTION 9+ HOURS. AWOKE PLESANT AND COOPERATIVE PUSHING WHEEL CHAIR DOWN [place] TO DINING ROOM.
[2017-08-01 08:03] VITALS: BP 121/79
--- NOTE | 2017-08-01 10:55 | NUR ---
ON UNIT TO ASSESS PT.
--- NOTE | 2017-08-01 14:11 | NUR ---
PT ALERT TO PERSON. PT REFUSED ALL AM PO MEDS. PT ISOLATIVE TO ROOM, COMING OUT FOR MEALS. NO HALLUCINATIONS OR DELUSIONS NOTED. PT DENIES ANY HOMICIDAL/SUICIDAL THOUGHTS. NO AGGRESSIVE OR COMBATIVE BEHAVIOR NOTED. PT CONSUMED 100% OF BREAKFAST AND LUNCH. PT PROPELS SELF IN WHEELCHAIR THRU THE [place]. PT CONTINENT OF BOWEL AND BLADDER. PT REFUSED HYGIENE CARE INCLUDING CLEANING HIS DENTURES. PLAN IS TO ENCOURAGE PT TO PARTICIPATE IN HYGIENE CARE, ENCOURAGE PT TO PARTICIPATE IN GROUPS/ACTIVITIES, MONITOR PT BEAHVIORS ON Q15 MIN SAFETY CHECKS.
[2017-08-01 20:00] VITALS: BP 114/69
--- NOTE | 2017-08-01 21:19 | NUR ---
ATE SNACK. MEDICATION COMPLIANT TONIGHT.. HAS BEEN IN DININGROOM A GOOD PART OF EVENING. MOVES SELF AROUND UNIT IN WHEELCHAIR. PLEASENT TONIGHT WITH NO COMPLAINT. CONTINUES TO REFUSE TO ALLOW STAFF TO CLEAN DENTURES.
--- NOTE | 2017-08-02 03:21 | NUR ---
24 HR chart check completed.
--- NOTE | 2017-08-02 03:57 | NUR ---
MOVES SELF WELL IN BED. REFUSES ANY ASSISTANCE. HAS BEEN SLEEPING WELL PAST 2200PM
[2017-08-02 07:53] VITALS: BP 118/69
[2017-08-02] MEDS ORDERED: TRAZADONE HYDR100 MG PO (08:56)
[2017-08-02] MEDS ORDERED: Vitamin D PO (08:56)
[2017-08-02] MEDS ORDERED: INVEGA SUSTENN234 MG IM (08:56)
[2017-08-02] MEDS ORDERED: Zostrix 0.1% T (08:56)
[2017-08-02] MEDS ORDERED: EXELON13.3 MG/21 T (08:56)
--- NOTE | 2017-08-02 09:39 | NUR ---
CALL PLACED TO HOSPITALIST CELL NUMBER [id number], SPOKE TO DR. NGUYEN, MADE AWARE OF DISCHARGE FOR TODAY BACK TO NURSING FACILITY.
[2017-08-02] MEDS ORDERED: SIMVASTATIN20 MG PO (10:31)
--- NOTE | 2017-08-02 11:25 | NUR ---
Exercise/October Fun Facts and Trivia Exercise helps with mobility, circulation as well as concentration to stay on task. Trivia also helps with concentration,thinking, solializing Patient did attend group but did not participate very much. Patient participated during exercise but then needed prompting to join in during the latter part of group. Patient eventually nodded off to sleep
--- NOTE | 2017-08-02 13:09 | NUR ---
NADER spoke with Evon from [facility] who states that if Dr. Miriam MD puts in writing that pt. is not a threat to himself or others, they would be willing to take pt. back. NADER forqarded Dr. miriam DAILEY d/c summary for [facility] review. A referral was also forwarded to [facility], awaiting their review of pt. and whether or not pt. can be admitted there. awaiting responses back from both facilities.
--- NOTE | 2017-08-02 13:56 | NUR ---
PT IS ALERT AND ORIENTED TO SELF ONLY, CONFUSED IN OTHER ASPECTS. ST/LT MEMORY DEFICITS NOTED. RESPIRATIONS EASY ON ROOM AIR. MOOD IS STABLE, AFFECT IS FLAT, SPEECH IS SOFT, GARBLED AT TIMES BUT ABLE TO MAKE NEEDS KNOWN. PT DENIES HALLUCINATIONS, NO RESPONSE TO INTERNAL STIMULI NOTED. PT DENIES SI/HI. MEDICATION COMPLIANT THIS DATE WITHOUT DIFFICULTY. NO AGGRESSIVE BEHAVIORS THIS SHIFT. CALM AND COOPERATIVE. INTERACTIVE WITH STAFF AND PEERS. PARTICIPATES IN GROUPS AND ACTIVITIES. SELF PROPELS ON UNIT WITH WHEELCHAIR, REMINDERS GIVEN TO ASK FOR ASSISTANCE WITH TRANSFERS D/T FALL RISK PRECAUTIONS, PT NONCOMPLIANT WITH FALL RISK PROCEDURES, STATES "I WONT FALL" FREQUENT REMINDERS GIVEN AND Q15 MIN [address] IN PLACE, ALARMS ACTIVE AND AUDIBLE. NO DISTRESS NTOED. Q15 MIN MONITORING CONTINUES, REFER TO [facility] FLOWSHEET FOR SPECIFIC MONITORING.
--- NOTE | 2017-08-02 14:00 | NUR ---
LAMAR FROM [facility] THAT PT WAS ACCEPTED AND LOC WAS BEING COMPLETED AND PT COULD COME ONCE LOC WAS RECEIVED.
--- NOTE | 2017-08-02 14:23 | NUR ---
PHYSICAL THERAPY Patient presented to therapy with report of pain in the R ankle today. Patient could not verbalize a pain level. Patient performed ther ex in seated position x 20 reps each in all planes. Patient performed SIT TO STANDS X 10 at hallway railing. Patient performed gait with W/W for 250' x 1 with SUPERVISION with verbal cues required for staying close to the walker. Patient was 1:1 with this SOLO MUSICIAN for 25 minutes. Julius Rodriguez SOLO MUSICIAN
--- NOTE | 2017-08-02 15:23 | NUR ---
Spoke with yolette from [facility] and Paulette from [facility]. pt. to be d/c'ed to [facility] once the LOC is approved. Paulette from [facility] will call when LOC is back. [facility] notified Dr. Israel of the delay.
--- NOTE | 2017-08-02 16:15 | NUR ---
MITCH SPOKE WITH REYNA WHO SAID SHE WAS WAITING FOR LOC FROM [facility] AT [facility]. MITCH WILL CALL [facility] TO SEE WHERE LOC IS.
--- NOTE | 2017-08-02 17:20 | NUR ---
SW RECEIVED CALL FROM [facility] REPORTING THAT LOC WAS BACK AND PT COULD COME.
--- NOTE | 2017-08-02 17:25 | NUR ---
MITCH ARRANGED TRANSPORATON WITH [facility] FOR 8:30PM FOR DISCHARGE TO [facility].
--- NOTE | 2017-08-02 17:30 | NUR ---
SW NOTIFIED NURSING THAT [facility] WAS FOR 8:30PM WITH [facility].
--- NOTE | 2017-08-02 17:40 | NUR ---
SW NOTIFIED GUARDIAN AND GAVE ADDRESS TO [facility] FOR PT. GUARDIAN WAS GLAD FOR PHONE DUE TO [place] NOT KEEPING HER INFORMED. DISCHARGE PAPERWORK TO BE MAILED DUE TO HER NOT HAVING A FAX MACHINE.
--- NOTE | 2017-08-02 18:18 | NUR ---
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
--- NOTE | 2017-08-02 18:20 | NUR ---
SHIFT CHART CHECK COMPLETED.
[2017-08-02 19:58] VITALS: BP 123/80
--- NOTE | 2017-08-02 21:56 | NUR ---
CLIENT MEDICATION COMPLIANT. IN BED AT THIS TIME AWAITING [facility] TO TRANSPORT [facility].
--- NOTE | 2017-08-03 00:09 | NUR ---
CLIENT GOT UP AT 2320PM. HAS BEEN SITTING IN WHEELCHAIR IN FRONT OF NURSES STATION. REFUSES TO GO TO BED. STATES HE WANTS TO LEAVE LIKE HE WAS TOLD. AWAITING AMBULANCE.
--- NOTE | 2017-08-03 00:57 | NUR ---
CLIENT DISCHARGED [facility]IA [facility] WITH ALL PAPERWORK AND PERSONAL ITEMS. CLIENT PLEASENT AND COOPERATIVE. ALL PM MEDICATIONS HAD BEEN GIVEN. NURSE TO NURSE REPORT GIVEN TO LILLIAM ROSA.
--- NOTE | 2017-08-03 07:56 | NUR ---
PHYSICAL THERAPY CO-SIGN I approve of the Phyical Therapy notes written above. LIOT RAM PT
--- NOTE | 2017-08-03 09:21 | NUR ---
SW CALLED AND SPOKE WITH ADMINISTRATION AND [facility] AND [facility] ABOUT LOC AND [facility]. LOC WAS SUBMITTED AND WAITING FOR RESULTS FORM AAA11.
== END 2017-08-03 00:52 | disposition other institution (70) | DRG 885 ==
LOC: 3N 15:22
PROVIDERS: Registered Nurse; ADMIT Psychiatry & Neurology Psychiatry
DX: F20.5 Residual schizophrenia (principal); F03.91 Unspecified dementia, unspecified severity, with behavioral disturbance; Z93.0 Tracheostomy status; R13.10 Dysphagia, unspecified; G40.909 Epilepsy, unspecified, not intractable, without status epilepticus; E11.9 Type 2 diabetes mellitus without complications; F17.200 Nicotine dependence, unspecified, uncomplicated; E55.9 Vitamin D deficiency, unspecified; Z79.899 Other long term (current) drug therapy; Z88.8 Allergy status to other drugs, medicaments and biological substances; Z71.6 Tobacco abuse counseling; Z87.820 Personal history of traumatic brain injury

== ENCOUNTER 2018-04-01 00:39 | Inpatient (IN) | payer MEDICAID ==
[~2018-04-01] VITALS: Ht 165.1 cm; Wt 81.6 kg
--- NOTE | ~2018-04-01 | PR ---
[place], [place] PROGRESS NOTE NAME: ALEM DUNCAN UNIT #: [id number] ROOM: 311 DOCTOR: YI MARTÍNEZ DO BIRTHDATE: [birth year] DOS: 04/05/2018 CHIEF COMPLAINT: "I don't want no blood." SUMMARY OF VISIT: This is a 62-year-old male who is being interviewed this morning while sitting in the conference room. The patient was waiting to have blood work done and the applications packager was present in the room. The patient was starting to get irritated and in a bullying voice he does not want blood work done. We informed the patient that the current medications he is on and if he has a desire to go back to [place], he needs to have blood work to be done. The patient continued to refuse. Therefore, we canceled the blood work to be performed at that moment. Once the patient realized this, patient's irritation decreased. Per nursing staff, the patient slept about 8 hours last night and that patient continues to refuse all medications including his Depakote. Nursing staff states he has not had any episodes of seizures throughout his stay here and that the patient usually keeps to himself, is usually isolated, quiet, but his facial expression appears that he is always irritated. MENTAL STATUS EXAMINATION: The patient is alert and oriented. Mood is becoming more euthymic; however, he does appear to be irritated at times, especially when he does not want something done. The patient is able to be redirected and calm down once any situations are resolved. There is no aggression, hypomania or shelbie. The patient does continue to appear delusional and short term memory continues to have some gaps. PLAN: 1. We are discontinuing Depakote due to the patient refusing routine blood work as well as not willing to take it on a routine basis. Valproic acid levels were unable to be obtained this morning due to patient refusing labs. 2. We are starting Haldol concentrate at 10 mg p.o. every morning. This medication can be mixed with juice. 3. We will continue to engage patient in individual and haile milieu activity, returning to the least restrictive environment when psychiatrically stable. Discharge will depend on medical and psychiatric status at that time. ADDENDUM Dr. Muniz 04/21/18 10:48 am: Above note reviewed. Agree with observations, recommendations, and overall treatment plan. Yi Martínez DO [place], [place] PROGRESS NOTE NAME: ALEM DUNCAN UNIT #: [id number] ROOM: 311 DOCTOR: YI MARTÍNEZ DO BIRTHDATE: [birth year] JUSTUS MUNIZ MD CM:PNNOVA [id number] YI MARTÍNEZ DO 04/21/18 1053 FÁTIMA GALLEGOS.RAFATR
--- NOTE | ~2018-04-01 | PR ---
[place], [place] PROGRESS NOTE NAME: ALEM DUNCAN UNIT #: [id number] ROOM: 311 DOCTOR: JUSTUS MUNIZ MD BIRTHDATE: [birth year] DOS: 04/09/2018 CHIEF COMPLAINT: "Morning, I am okay." SUMMARY OF THE VISIT: The patient was interviewed in his room as he was resting quietly in bed. He engaged readily in conversation, reporting that he got up, had breakfast and is now tired and wants to rest. He was somewhat dismissive, but pleasantly so. There was no agitation or aggression, no mood lability was noted. He is tolerating the current medication regimen well without any extrapyramidal symptoms, tardive dyskinesia, sedation or somnolence. MENTAL STATUS: He is alert and oriented with some time gaps. Mood does seem to be strongly trending towards euthymia. Affect is much more appropriate. There is no hypomania, shelbie or gross psychosis. Short-term memory has some gaps, otherwise he is intact. PLAN: I will maintain his current psychotropic regimen, which includes the use of 2 antipsychotics due to failure of monotherapy. He is tolerating the 2 antipsychotics well and is gaining benefit from them. We will discharge to the least restrictive environment when psychiatrically stable. JUSTUS MUNIZ MD CM:PNTRANS [id number] JUSTUS MUNIZ MD 04/09/18 1426 interface
--- NOTE | ~2018-04-01 | PR ---
[place], [place] PROGRESS NOTE NAME: ALEM DUNCAN UNIT #: [id number] ROOM: 311 DOCTOR: JUSTUS MUNIZ MD BIRTHDATE: [birth year] DOS: 04/10/2018 CHIEF COMPLAINT: "Morning doctor." SUMMARY OF THE VISIT: The patient was interviewed as he was sitting in the dining area with some men and engaging in pleasant conversation with them. As I approached, he greeted me. I did talk to him about the plans for possible discharge back to [place] and he smiled and thanked me for that. He has been fairly pleasant and compliant and has been taking his medications a little bit more regularly. He has tolerated the injection of both the Invega Sustenna and the Haldol Decanoate without any increase in extrapyramidal symptoms, tardive dyskinesia or any other side effects. MENTAL STATUS: He is alert and oriented to person, place and very approximate to time. Mood does seem to be trending towards euthymia. Affect is much more appropriate. There is no overt shelbie, hypomania or psychosis and memory for the most part is intact. PLAN: Maintain the current psychotropics and we will look to discharge back to [place] when psychiatrically stable. JUSTUS MUNIZ MD CM:PNTRANS 0905 0000 JUSTUS MUNIZ MD 04/10/18 2359 interface
--- NOTE | ~2018-04-01 | PR ---
[place], [place] PROGRESS NOTE NAME: ALEM DUNCAN UNIT #: [id number] ROOM: 311 DOCTOR: JUSTUS MUNIZ MD BIRTHDATE: [birth year] DOS: 04/08/2018 CHIEF COMPLAINT: "I am here because of my eye." SUMMARY OF THE VISIT: The patient was interviewed as he sat eating his breakfast. I engaged him in conversation, specifically talking about receiving the Haldol Decanoate shot. At first, he refused it, stating that he is only here because of his eye. When I later did redirect him and state that if he wanted to be able to go back to [place] in [place], [place], they would need to see that he is actively compliant with all aspects of his care. Nurses did then approach him 30 minutes later offering him the Haldol Decanoate shot, which he easily took without issue. MENTAL STATUS: He is alert and oriented with time gaps. Mood does seem to be trending towards euthymia. Affect is more appropriate. There is no shelbie, hypomania. He does remain somewhat delusional. Memory for the most part is intact. PLAN: Given the fact that he now took the Haldol Decanoate shot of 150 mg IM that will be given now monthly, I will discontinue his oral Haldol, maintain him on Invega Sustenna, engage in individual and haile milieu activity with the plan to return back to [place] or the least restrictive environment when stable. JUSTUS MUNIZ MD CM:PNTRANS [id number] JUSTUS MUNIZ MD 04/09/18 0324 interface
--- NOTE | ~2018-04-01 | PR ---
[place], [place] PROGRESS NOTE NAME: ALEM DUNCAN UNIT #: [id number] ROOM: 311 DOCTOR: JUSTUS MUNIZ MD BIRTHDATE: [birth year] DOS: 04/04/2018 CHIEF COMPLAINT: "I'm here because of my war injuries and I live in an apartment by myself." SUMMARY OF THE VISIT: The patient was interviewed as he was resting quietly in bed. He awoke and engaged readily in conversation, voicing no complaints. He remains rather delusional and somewhat confused and his thinking is rather disjointed and fragmented. He does seem to be tolerating the current medication regimen well and I see no overt side effects. MENTAL STATUS: He remains alert and oriented with some time gaps. Mood does seem to be fairly euthymic. There was no agitation or aggression. There was no hypomania or shelbie and he does remain delusional, however. Short-term memory has some gaps. PLAN: I will continue his current psychotropic regimen. I will check a valproic acid level in the a.m. to ensure that it is therapeutic. Engage in individual and haile milieu activity, returning to the least restrictive environment when psychiatrically stable. JUSTUS MUNIZ MD CM:PNTRANS [id number] JUSTUS MUNIZ MD 04/04/182221 interface
--- NOTE | ~2018-04-01 | PR ---
[place], [place] PROGRESS NOTE NAME: ALEM DUNCAN UNIT #: [id number] ROOM: 311 DOCTOR: JUSTUS MUNIZ MD BIRTHDATE: [birth year] DOS: 04/06/2018 CHIEF COMPLAINT: "My stomach hurts." SUMMARY OF THE VISIT: The patient was interviewed as he was resting in bed. He reported that his stomach has been bothering him. He denies any nausea associated with it and does not relate that the pain is affected by him eating or not eating. He continues to be delusional and confused, stating that he does not live at [place] instead he gave me an apartment address to which he lives. He continues to be episodically compliant with his medicines and has not been compliant with any blood draws. MENTAL STATUS: He is alert and oriented with time gaps. Mood does seem to be still somewhat labile. Affect at times is inappropriate. He remains delusional. There is no paranoia. There are no overt auditory hallucinations. Memory has some gaps, but otherwise he is intact. PLAN: I will attempt to check amylase, lipase and ammonia level to rule out organic factors. Defer to the hospitalist regarding management of his abdominal pain. JUSTUS MUNIZ MD CM:PNTRANS [id number] JUSTUS MUNIZ MD 04/06/18 1322 interface
--- NOTE | ~2018-04-01 | PR ---
[place], [place] PROGRESS NOTE NAME: ALEM DUNCAN UNIT #: [id number] ROOM: 311 DOCTOR: JUSTUS MUNIZ MD BIRTHDATE: [birth year] DOS: 04/07/2018 CHIEF COMPLAINT: "I am tired this morning, that's all." SUMMARY OF THE VISIT: The patient was interviewed once again as he was resting quietly in bed. His only complaint was he was tired this morning. He did not complain of belly pain today or any other issues. When pushed to see if there was anything else he needed, he was rather dismissive and stated that that was his only complaint for the day. Nurses report that he continues to be noncompliant with blood draws and is episodically noncompliant with meds. In fact, they find that if they mix it with coffee, he will drink the entire cup of coffee and take the meds in it. He does seem to be tolerating all of his medications well and I do not see sedation, somnolence, extrapyramidal symptoms or tardive dyskinesia. MENTAL STATUS: He is alert and oriented. Mood does still seem to be somewhat irritable and dismissive. He does not exhibit any auditory or visual hallucinations, delusions or paranoia. Memory for the most part is intact. PLAN: I will go ahead and load with Haldol Decanoate 150 mg IM starting on Wednesday. This will be given in conjunction with the Invega Sustenna. This way, we can discontinue other augmenting agent such as the Depakote given the fact that he is noncompliant with oral medications. We will monitor him then for benefit as well as potential side effects with the ultimate plan to return back to [address] in [place], [place] when psychiatrically stable. JUSTUS MUNIZ MD CM:PNTRANS [id number] JUSTUS MUNIZ MD 04/08/18 0420 interface
--- NOTE | ~2018-04-01 | PR ---
[place], [place] PROGRESS NOTE NAME: ALEM DUNCAN UNIT #: [id number] ROOM: 311 DOCTOR: HILARY WELLS MD BIRTHDATE: [birth year] DOS: 04/02/2018 PSYCHIATRIC PROGRESS NOTE SUBJECTIVE: The patient seen and spoke with the staff. Per staff, the patient refused his night medication, but took medication this morning. He stays to himself. The patient was in his bed. He was in his room. He said that he was taking his medication regularly. He did not express any problems or concerns, seems a little irritable. MENTAL STATUS EXAMINATION: Irritable and upset. The patient was alert, described his mood as "okay." Affect constricted, flat. Thought process goal-directed. No flight of ideas or loosening of association. He denied auditory or visual hallucination. No overt delusions or paranoia noted. He denied suicidal ideation, intent or plan. He also denied homicidal ideation, intent or plan. PLAN: 1. Continue current medications and care. 2. Continue redirection. 3. Encourage activity in groups. HILARY WELLS MD CM:PNTRANS [phone] HILARY WELLS MD 04/18/18 0750 interface
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
--- NOTE | ~2018-04-01 | PR ---
[place], [place] PROGRESS NOTE NAME: ALEM DUNCAN UNIT #: [id number] ROOM: 311 DOCTOR: HILARY WELLS MD BIRTHDATE: [birth year] DOS: 04/03/2018 SUBJECTIVE: The patient seen and spoke with the staff. Per staff, the patient is not taking his medication. He refused yesterday night medication. Now, he refused medication of the morning also. Reportedly, he told the nursing staff that medication makes him tired. The patient was pleasant and cooperative. He was in the day area. When I asked him about not taking his medication, he said that "he don't need any medication." He did not talk about any side effect or any issues. I told him that we can change his medication all at night, but he still continues to refuse and then he started rambling. MENTAL STATUS EXAMINATION: Pleasant and cooperative. At first, he was alert, oriented to place and person. Described his mood as "good." Affect was labile, broad ranged. Thought process is disorganized with some flight of ideas, loosening of association. He denied auditory or visual hallucination. No delusion or paranoia noted. He denied suicidal ideation, intent or plan. He also denied homicidal ideation, intent or plan. Insight and judgment impaired. ASSESSMENT: Schizoaffective disorder. PLAN: 1. Continue to encourage the patient to take medication. 2. Continue redirection and supportive care. 3. May need to get a forced medication order from the court if the patient continues to refuse medication. 4. Final medication management and discharge plan by the regular team. HILARY WELLS MD CM:PNTRANS [id number] HILARY WELLS MD 04/18/18 0749 interface
[~2018-04-01 00:39] MED LIST changes: +DULCOLAX10 M1 R; +EXELON13.3 MG/21 T; +FLEET ENEMA EX230 M1 R; +HALDOL0.5 MG PO; +HALDOL5 MG/1 ML IJ; +INVEGA SUSTENN234 MG IM; +MOM30 M1 PO; +SIMVASTATIN20 MG PO; +TRAZADONE HYDR100 MG PO; +TYLENOL325 M1 PO; +Vitamin D PO; +Zostrix 0.1% T
[2018-04-01] MEDS ORDERED: BIOFREEZE118 ML T (01:30)
[2018-04-01] MEDS ORDERED: NAMENDA-28 PO (02:25)
[2018-04-01 10:30] VITALS: BP 123/85
[2018-04-01 12:21] VITALS: BP 123/85
[2018-04-01 15:44] LABS: BILIRUBIN NEGATIVE (NEGATIVE); BLOOD NEGATIVE (NEGATIVE); CLARITY CLEAR (CLEAR); COLOR YELLOW (YELLOW); GLUCOSE 3+ (NEGATIVE); KETONE NEGATIVE (NEGATIVE); LEUKO ESTERASE NEGATIVE (NEGATIVE); NITRITE NEGATIVE (NEGATIVE)
[2018-04-01 16:07] LABS: WBC 0-2 wbc/hpf (0-5)
[2018-04-01 16:08] LABS: RBC 0-2 rbc/hpf (0-2)
[2018-04-01 19:23] VITALS: BP 101/58
[2018-04-02 07:35] VITALS: BP 136/68
[2018-04-03 07:41] VITALS: BP 130/62
[2018-04-03 20:30] VITALS: BP 142/82
[2018-04-04 08:11] VITALS: BP 123/72
[2018-04-04 20:07] VITALS: BP 106/76
[2018-04-05 08:00] VITALS: BP 121/72
[2018-04-05 19:37] VITALS: BP 102/63
[2018-04-06 07:43] VITALS: BP 105/81
[2018-04-06 20:06] VITALS: BP 119/69
[2018-04-07 07:40] VITALS: BP 120/75
[2018-04-07 19:44] VITALS: BP 118/68
[2018-04-08 07:38] VITALS: BP 130/67
[2018-04-08 20:10] VITALS: BP 131/79
[2018-04-09 08:01] VITALS: BP 120/67
[2018-04-09] MEDS ORDERED: INVEGA SUSTENN234 MG IM (09:37)
[2018-04-09] MEDS ORDERED: MEMANTINE HCL10 MG PO (09:37)
[2018-04-09] MEDS ORDERED: EXELON13.3 MG/21 T (09:37)
[2018-04-09] MEDS ORDERED: HALOPERIDO100 MG/1 M IM (09:47)
[2018-04-09] MEDS ORDERED: Haldol Decanoate IM (09:47)
[2018-04-09 20:33] VITALS: BP 130/76
[2018-04-10 07:58] VITALS: BP 115/69
[2018-04-10 19:59] VITALS: BP 122/79
[2018-04-10 20:00] VITALS: BP 122/79
[2018-04-11 07:43] VITALS: BP 146/79
== END 2018-04-11 18:30 | DRG 885 ==
LOC: 3N 00:39
PROVIDERS: Psychiatry & Neurology Psychiatry
DX: F25.9 Schizoaffective disorder, unspecified (principal); F03.90 Unspecified dementia, unspecified severity, without behavioral disturbance, psychotic disturbance, mood disturbance, and anxiety; E11.9 Type 2 diabetes mellitus without complications; E55.9 Vitamin D deficiency, unspecified; E78.2 Mixed hyperlipidemia; Z72.0 Tobacco use; Z79.899 Other long term (current) drug therapy